=== PATIENT | male | born 2005 | race Caucasian/White ===

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

== ENCOUNTER 2025-01-30 17:25 | Emergency (ER) | payer OTHER, SELFPAY ==
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
--- OUTSIDE RECORDS SUMMARY | 2025-01-30 17:27 | XMS_ITS | Continuity of Care Document ---
Author Organization [place] [facility] [employer], [facility] [place] Address [address] [place] [address] Care Team Providers Care Curve Saw Operator Name Role Phone NAOMI DUKES Primary Care Provider NAOMI DUKES Referring Provider [phone] Assessment Encounter Date Assessment Date Assessment LastModified by Organization Details LastModified Time 01/05/2025 01/05/2025 09/22/2024: LDL 129 [email or web address] Not available 11/23/2024 15:21:10 Plan of Treatment Reminders Order Date Submit Date Provider Last Modified By Organization Details Last Modified Time Details Appointments Any 15 2025 02:00P M Naomi ely MD Not available Not available Not available Lab TSH, serum or plasma 2024 025 [email or web address] [facility] - Outpatient Lab, [address] [place], [address], 01/28/2025 11:02:18 lipid panel, serum [email or web address] - Outpatient Lab, [address] [place], [address], 01/05/2025 17:12:45 CBC w/ auto diff [email or web address] - Outpatient Lab, [address] [place], [address], 01/05/2025 17:12:45 CMP, serum or plasma [address] Outpatient Lab, [address] [place], [address], 01/05/2025 17:12:45 T4, free, serum 2024 [email or web address] [facility] Outpatient Lab, [address] [place], [address], 01/28/2025 11:02:18 vitamin D, 25-hydrox y, total, serum [address] Outpatient Lab, [address] [place], [address], 01/05/2025 17:12:45 vitamin B12 + folate, serum or blood [address] Outpatient Lab, [address] [place], [address], 01/05/2025 17:12:45 Referral cardiolog ist referral - Please call patient to schedule. 2024 JAMES Nath MD, [address], [address], 01/08/2025 11:39:32 Procedures None recorded. Surgeries None recorded. Imaging None recorded. Medication Orders None recorded. Patient TargetsNo targets recorded. Patient InstructionsNo instructions recorded. Reason for Referral Manager Drug Safety Referral for Pu lmonic valve stenosis Please call patient to schedule. Referring Physician: Naomi Dukes, Internal Medicine, Encounter Date: 01/05/2025 Problems Name Problem SNOMED Code Status Onset Date Resolution Date Notes Provider Name and Address Organization Details Recorded Time Callosity on toe 857383158 Active 2020 Not Available [facility] 3 12:38:43 Serum thyroid stimulatin g hormone level outside reference range 482445365 Active 2021 Not Available [facility] 3 12:38:43 Deviated nasal septum 548473929 Active 2021 Carmen Cage APRN [address], [place], [address] , [employer] 4 14:22:19 Anxiety 71367059 Active 2022 Carmen Cage APRN [address], [address], [place], [address] , [employer] 4 11:41:58 Acid reflux 637324175 Active 2022 Carmen Cage APRN [address], [address], [place], [address] , [employer] 4 14:22:17 Atrial septal defect 60377076 Active 2022 Valve replaced 05/14/2023 Carmen Cage APRN [address], [address], [place], [address] , [employer] 4 11:47:04 Obesity 207573047 Active 2022 Carmen Cage APRN [address], [address], [place], [address] , [employer] 4 14:22:22 Abdominal pain 93283307 Active 2023 Carmen Cage APRN [address], [address], [place], [address] , [employer] 4 11:27:20 Gastroesop hageal reflux disease 766898243 Active 2024 Naomi jacobson MD [address], [address], [place], [address] , [employer] 5 16:11:37 Chronic rhinitis 04343303 Active 2024 Naomi jacobson MD [address], [address], [place], [address] , [employer] 5 16:13:43 Vitamin D below reference range 213293701 Active 2024 Naomi jacobson MD [address], [address], [place], [address] , [facility] [employer] [facility] 5 16:14:26 Vitamin B12 level below reference range 253639375 Active 2024 Naomi jacobson MD [address], [address], [place], [address] , [facility] 5 16:14:39 Pulmonic valve stenosis 73700152 Active 2024 Naomi jacobson MD [address], [place], [address] , [facility] 5 16:30:59 Pain of left shoulder region Active 2024 Naomi jacobson MD [address], [address], [place], [address] , [facility] 5 15:33:37 Acute abdominal pain 241175931 Active 2024 Heidy Rod [facility] null, [facility] 5 16:01:59 Epigastric pain 00439845 Active 2024 Vahe martel MD [address], [address], [place], [address] , [facility] [employer] [facility] 5 16:43:12 Hyperlipid emia 99256197 Active 2024 Naomi jacobson MD [address], [address], [place], [address] , [facility] [employer] [facility] 5 15:21:14 Problem Notes None recorded. Procedures Surgical History Date Name Laterality Status Provider Name and Address Organization Details Recorded Time 05/15/19 24 procedure on heart completed Megan Roy CNA [facility] [employer] [facility] 07/28/2024 11:08:31 05/15/19 24 placement of stent in cardiac conduit completed Mica Albarran MA [place] [facility] [employer] [facility] 01/21/2024 11:11:58 03/12/19 10 tonsilectomy/nitish oids completed Not Available [facility] 05/11/2022 00:03:14 09/21/19 04 percutaneous balloon valvuloplasty of heart completed Megan Roy CNA [place] [facility] [employer] [facility] 07/28/2024 11:09:36 Imaging Results None recorded. Procedure Notes None recorded. Medical Equipment None Reported. Allergies Allergen ID Allergen Name Allergen Category Reaction Reaction Severity Criticality Documentation Date Start Date Code Code System Note Provider Name and Address Organization Details Recorded Time 65475 Robitussi n medicatio n Not available Not available Not available 05/11/2022 72807 2 RxNorm Not Available [facility] 3 00:05:54 85540 Motrin medicatio n Not available Not available Not available 05/11/202246926 8 RxNorm Not Available [facility] 3 00:05:54 Medications Name Sig Start Date Stop Date Status Note LastModified by Organization Details LastModified Time doxycycline hyclate 100 mg capsule TAKE 1 CAPSULE BY MOUTH EVERY DAY 12/04 completed Not Available Not Available Not Available metoprolol succinate ER 50 mg tablet,exte nded release 24 hr TAKE 1 TABLET BY MOUTH EVERY DAY 07/15 completed Not Available Not Available Not Available prednisone 5 mg tablet TAKE 1 TABLET BY MOUTH EVERY DAY IN THE MORNING 12/04 completed Not Available Not Available Not Available amoxicillin 500 mg tablet TAKE 4 TABLET BY MOUTH SINGLE DOSE ONE HOUR PRIOR TO DENTAL APPOINTME NT. 07/21 completed Not Available Not Available Not Available amoxicillin 875 mg tablet TAKE 1 TABLET BY MOUTH TWICE A DAY 01/09 completed Not Available Not Available Not Available famotidine 20 mg tablet TAKE 1 TABLET BY MOUTH TWICE A DAY active Not Available Not Available No t Available lorazepam 0.5 mg tablet TAKE 1 TABLET BY MOUTH THREE TIMES A DAY NEEDED 07/15 completed Not Available Not Available Not Available ondansetron 4 mg disintegrat ing tablet TAKE 1 TABLET BY MOUTH EVERY 6 TO 8 HOURS NEEDED active Not Available Not Available No t Available fluoxetine 20 mg capsule TAKE 1 CAPSULE BY MOUTH EVERY DAY 07/15 completed Not Available Not Available Not Available fluticasone propionate 50 mcg/actuati on nasal spray,suspe nsion SPRAY 1 SPRAY INTO EACH NOSTRIL EVERY DAY active Not Available Not Available No t Available naproxen 500 mg tablet 01/09 completed Not Available Not Available Not Available Zyrtec 01/09 completed Not Available Not Available Not Available olopatadine 0.6 % nasal spray ADMINISTE R 1-2 SPRAYS INTO EACH NOSTRIL TWICE A DAY 01/20 completed Not Available Not Available Not Available BinaxNOW COVID-19 Ag Self Test kit USE DIRECTED 12/04 completed Not Available Not Available Not Available aspirin 81 mg capsule Take 1 capsule every day by oral route. active Not Available Not Available No t Available Vitals Date Recorded Body height Body mass index (BMI) Body weight Body temperature Pain severity - 0-10 verbal numeric rating [Score] - Reported Heart rate Oxygen saturation Systolic And Diastolic Provider Name and Address Organization Details Last Updated DateTime 5 182.88 cm 33.9 kg/m2 658838. 09 g 97.6 [degF] 0 92 /min 98 % 122/78 mm[Hg] Mica Albarran [place] [facility] [employer] 5 14:53:30 Social History Question Answer Notes LastModified by Organizat ion Details LastModified Time Tobacco Smoking Status Never Smoker Not Available [employer] 05/11/2022 00:02:58 What Is Your Level Of Caffeine Consumption? Occasional Rarely Information not available 01/21/2024 In The 14 Days Before Symptom Onset, Have You Had Close Contact With A Laboratory-confi rmed COVID-19 While That Case Was Ill? No [id number] Information not available 05/11/2022 In The 14 Days Before Symptom Onset, Have You Had Close Contact With A Person Who Is Under Investigation For COVID-19 While That Person Was Ill? No MIGRATION.72799 [id number] Information not available 05/11/2022 What Type Of Diet Are You Following? REGULAR MIGRATION.94964 51661 Information not available 05/11/2022 What Is The Highest Grade Or Level Of School You Have Completed Or The Highest Degree You Have Received? IA88946-5 MIGRATION.15550 07072 Information not available 05/11/2022 Have There Been Any Changes To Your Family Or Social Situation? No Information not available 01/21/2024 What Is The Fluoride Status Of Your Home? Unknown MIGRATION.30505 15266 Information not available 05/11/2022 Are There Any Guns Present In Your Home? No MIGRATION.06415 67298 Information not available 05/11/2022 Do You Use Insect Repellent Routinely? No MIGRATION.05649 15250 Information not available 05/11/2022 Where Do You Live? [place]House MIGRATION.53664 82885 Information not available 05/11/2022 What Was The Date Of Your Most Recent Tobacco Screening? 01/05/2025 Information not available 01/05/2025 Do You Have Any Pets? No MIGRATION.57986 09760 Information not available 05/11/2022 What Is Your Relationship Status? Single MIGRATION.41259 [id number] Information not available 05/11/2022 Do You Use Your Seat Belt Or Car Seat Routinely? Yes Information not available 01/21/2024 Do You Have Smoke And Carbon Monoxide Detectors In Your Home? No MIGRATION.18974 33672 Information not available 05/11/2022 Are You Passively Exposed To Smoke? No MIGRATION.37759 97399 Information not available 05/11/2022 Are There Any Smokers In Your House? No MIGRATION.12763 86755 Information not available 05/11/2022 Do You Use Sunscreen Routinely? No MIGRATION.52282 74156 Information not available 05/11/2022 Has Tobacco Cessation Counseling Been Provided? No MIGRATION.39530 29468 Information not available 05/11/2022 Have You Recently Traveled Abroad? No MIGRATION.95225 73132 Information not available 05/11/2022 Do You Have Any Dietary Restrictions? No MIGRATION.80684 58440 Information not available 05/11/2022 Sex: Unknown Functional Status Question Answer Note LastModified by Organizat ion Details LastModified Time Do you use any illicit or recreational drugs? No MIGRATION.[id number] 026 Information not available 05/11/2022 Do you or have you ever used any other forms of tobacco or nicotine? No MIGRATION.7166630 026 Information not available 05/11/2022 What is your level of alcohol consumption? None MIGRATION.8660478 026 Information not available 05/11/2022 Are you currently employed? Yes Information not available 01/21/2024 What is your occupation? [employer] Information not available 01/21/2024 What is your exercise level? Occasional MIGRATION.[id number] 026 Information not available 05/11/2022 Mental Status Question Answer Note LastModified by Organizat ion Details LastModified Time Do you feel stressed (tense, restless, nervous, or anxious, or unable to sleep at night)? [id number] MIGRATION.[id number] Information not available 05/11/2022 Family History Relationship Description Onset Age of this Age Resolved Age Notes LastModified by Organization Details LastModified Time Father Diabetes mellitus [id number] [id number] Not available 05/11/2022 00:03:15 Father Family history of stroke MIGRATION.657 [id number] Not available 05/11/2022 00:03:16 Father Arthritis MIGRATION.037 [id number] Not available 05/11/2022 00:03:16 Father Hypertensive disorder MIGRATION.122 [id number] Not available 05/11/2022 00:03:16 Maternal Grandmother Arthritis MIGRATION.753 [id number] Not available 05/11/2022 00:03:16 Paternal Aunt Diabetes mellitus multip le aunts [email or web address] Not available 07/28/2024 11:07:03 Paternal Aunt Hypertensive disorder [email or web address] Not available 2024 11:07:13 Paternal Aunt Heart disease [email or web address] Not available 2024 11:07:40 Father Heart disease [email or web address] Not available 2024 11:07:40 Medical History Condition Response DEPRESSION (INCLUDING POST ) Y HEART ARRHYTHMIA Y HEART DISEASE/HEART PROBLEMS Y Immunizations Vaccine Type Date Status Note Provider Nam e and Address Organization Details Recorded Time Influenza, split virus, quadrivalent, preservative 2 completed Carmen Cage APRN [address], [address], [place], [address], [facility] [employer] [facility] 01/03/2024 14:23:00 COVID-19, mRNA, LNP-S, PF, 30 mcg/0.3 mL dose 1 completed Carmen Cage APRN [address], [address], [place], [address], [facility] 01/03/2024 14:23:01 COVID-19, mRNA, LNP-S, PF, 30 mcg/0.3 mL dose 1 completed Carmen Cage APRN [address], [address], [place], [address], [facility] 01/03/2024 14:23:01 COVID-19, mRNA, LNP-S, PF, 30 mcg/0.3 mL dose [address], [place], [address], [facility] 01/03/2024 14:23:01 influenza, unspecified formulation 3 completed [address], [place], [address], [facility] 01/03/2024 14:22:35 Influenza, MDCK, quadrivalent, PF 3 completed [address], [place], [address], [facility] 01/03/2024 14:23:01 Hib, unspecified formulation 5 completed [address], [place], [address], [facility] 01/03/2024 14:23:00 Hib, unspecified formulation 6 completed [address], [place], [address], [facility] 01/03/2024 14:23:00 Hib, unspecified formulation 5 completed [address], [place], [address], [facility] 01/03/2024 14:23:00 Hib, unspecified formulation 4 completed Carmen Niles, [employer] [address], [address], [place], [address], [facility] 01/03/2024 14:23:01 HPV9 6 completed Carmen Cage APRN [address], [address], [place], [address], [facility] 01/03/2024 14:23:01 HPV9 5 completed Carmen Cage APRN [address], [address], [place], [address], [facility] [employer] [facility] 01/03/2024 14:23:01 HPV9 6 completed Carmen Cage APRN [address], [address], [place], [address], [facility] [employer] [facility] 01/03/2024 14:23:01 MMR 9 completed Carmen Cage APRN [address], [address], [place], [address], [facility] 01/03/2024 14:23:01 MMR 5 completed Carmen Cage APRN [address], [address], [place], [address], [facility] [employer] [facility] 01/03/2024 14:23:01 COVID-19, mRNA, LNP-S, bivalent, PF, 30 mcg/0.3 mL dose 2 completed Carmen Cage APRN [address], [address], [place], [address], [facility] [employer] [facility] 01/03/2024 14:23:01 pneumococcal conjugate PCV 7 5 brittani Cage APRN [address], [address], [place], [address], [facility] [employer] [facility] 01/03/2024 14:23:01 pneumococcal conjugate PCV 7 5 brittani Cage APRN [address], [address], [place], [address], [facility] [employer] [facility] 01/03/2024 14:23:01 pneumococcal conjugate PCV 7 4 completed Carmen Cage APRN [address], [address], [place], [address], [facility] [employer] [facility] 01/03/2024 14:23:01 DTaP-IPV 9 completed Carmen Cage APRN [address], [address], [place], [address], [facility] [employer] [facility] 01/03/2024 14:23:01 COVID-19, mRNA, LNP-S, PF, jhonatan-sucrose, 30 mcg/0.3 mL 3 completed Carmen Cage APRN [address], [address], [place], [address], [facility] [employer] [facility] 01/03/2024 14:23:01 influenza, unspecified formulation 8 completed Carmen Cage APRN [address], [address], [place], [address], [facility] [employer] [facility] 01/03/2024 14:23:01 Tdap 5 completed Carmen Cage APRN [address], [address], [place], [address], [facility] [employer] [facility] 01/03/2024 14:23:01 varicella 9 completed Carmen Cage APRN [address], [address], [place], [address], [facility] [employer] [facility] 01/03/2024 14:23:01 varicella 5 completed Carmen Cage APRN [address], [address], [place], [address], [facility] [employer] [facility] 01/03/2024 14:23:01 Influenza, split virus, trivalent, preservative 1 brittani Cage APRN [address], [address], [place], [address], [facility] [employer] [facility] 01/03/2024 14:23:01 Influenza, split virus, trivalent, PF 3 completed Carmen Cage APRN [address], [address], [place], [address], [employer] [facility] 01/03/2024 14:23:01 Influenza, split virus, trivalent, PF 2 completed Carmen Cage APRN [address], [address], [place], [address], [employer] [facility] 01/03/2024 14:23:01 influenza, split (incl. purified surface antigen) 9 completed Carmen Cage APRN [address], [address], [place], [address], [employer] [facility] 01/03/2024 14:23:01 influenza, split (incl. purified surface antigen) 0 completed Carmen Cage APRN [address], [address], [place], [address], [employer] [facility] 01/03/2024 14:23:01 influenza, split (incl. purified surface antigen) 8 completed Carmen Cage APRN [address], [address], [place], [address], [employer] [facility] 01/03/2024 14:23:01 HPV, quadrivalent 5 completed Carmen Cage APRN [address], [address], [place], [address], [employer] [facility] 01/03/2024 14:23:01 Hep B, adolescent or pediatric 4 completed Carmen Cage APRN [address], [address], [place], [address], [employer] [facility] 01/03/2024 14:23:01 Hep B, adolescent or pediatric 4 completed Carmen Cage APRN [address], [address], [place], [address], [employer] [facility] 01/03/2024 14:23:01 Hep A, pediatric, unspecified formulation 7 completed Carmen Cage APRN [address], [place], [address], [employer] [facility] [employer] [facility] 01/03/2024 14:23:01 Hep A, pediatric, unspecified formulation 6 completed Carmen Cage APRN [address], [place], [address], [employer] [facility] [employer] [facility] 01/03/2024 14:23:01 Meningococcal MCV4O 0 completed Carmen Cage APRN [address], [place], [address], [employer] [facility] [employer] [facility] 01/03/2024 14:23:01 meningococcal MCV4P 5 completed Carmen Cage APRN [address], [address], [place], [address], [employer] [facility] [employer] [facility] 01/03/2024 14:23:01 DTaP 6 brittani Cage APRN [address], [place], [address], [employer] [facility] [employer] [facility] 01/03/2024 14:23:01 DTaP-Hep B-IPV 5 brittani Cage APRN [address], [place], [address], [employer] [facility] [employer] [facility] 01/03/2024 14:23:01 DTaP-Hep B-IPV 5 completed Carmen Cage APRN [address], [place], [address], [employer] [facility] [employer] [facility] 01/03/2024 14:23:01 DTaP-Hep B-IPV 4 completed Carmen Cage APRN [address], [place], [address], [facility] [employer] [facility] [employer] [facility] 01/03/2024 14:23:01 Influenza, split virus, quadrivalent, PF 1 completed Carmen Cage APRN [address], [address], [place], [address], [employer] [facility] [employer] [facility] 01/03/2024 14:23:01 Influenza, split virus, quadrivalent, PF 7 completed Carmen Cage APRN [address], [place], [address], [employer] [facility] [employer] [facility] 01/03/2024 14:23:01 Influenza, split virus, quadrivalent, PF 6 completed Carmen Cage APRN [address], [place], [address], [employer] [facility] [employer] [facility] 01/03/2024 14:23:01 Influenza, split virus, quadrivalent, PF 8 completed Carmen Cage APRN [address], [place], [address], [employer] [facility] [employer] [facility] 01/03/2024 14:23:01 Influenza, split virus, quadrivalent, PF 9 completed Carmen Cage APRN [address], [place], [address], [employer] [facility] [employer] [facility] 01/03/2024 14:23:01 Influenza, split virus, quadrivalent, PF 2 completed Carmen Cage APRN [address] [address], [place], [address], [employer] [facility] [employer] [facility] 01/03/2024 14:23:01 Influenza, split virus, quadrivalent, PF 4 completed Carmen Cage APRN [address], [address], [place], [address], [employer] [facility] [employer] [facility] 01/03/2024 14:23:01 Influenza, split virus, quadrivalent, PF 5 completed Carmen Cage APRN [address], [address], [place], [address], [employer] [facility] [employer] [facility] 01/03/2024 14:23:01 COVID-19, mRNA, LNP-S, PF, jhonatan-sucrose, 30 mcg/0.3 mL 4 completed Carmen Cage, [employer] [address], [address], [place], [address], [facility] [employer] 01/21/2024 11:15:51 Influenza, MDCK, trivalent, PF 4 completed Carmen Cage, [employer] [address], [address], [place], [address], [facility] [employer] [facility] [employer] 01/21/2024 11:15:52 Influenza, MDCK, trivalent, PF 5 completed Not Available [facility] 01/05/2025 14:36:23 COVID-19, mRNA, LNP-S, PF, jhonatan-sucrose, 30 mcg/0.3 mL 5 completed Not Available [facility] 01/05/2025 14:36:23 Past Encounters Encounter ID Performer Location Encounter Start Date Encounter Closed Date Diagnosis/Indication Diagnosis SNOMED-CT Code Diagnosis ICD10 Code Diagnosis IMO Codes Diagnosis Note [id number] Naomi jacobson MD [facility] [address] [place] [address] 01/05/2025 14:34:14 01/05/2025 15:33:19 Screening due 857842075 Z13.9 [id number] Get yearly flu shotGet Tdap if not doneCan do COVID 19 boosters RTC in 3 months, do labs, ER if worse, he did verbalize his understand ing of the above Gastroesop hageal reflux disease 734173831 K21.9 68573128 On famotidine Does well nowDecline d any referral to GI 01/05/2025 Chronic rhinitis 5706249 6 J31.0 2545 On flonaseDoe s well Vitamin D below reference range 077321300 R79.89 31717309 Vitamin B1 2 level below reference range 653271262 R79.89 77096706 Pulmonic v alve stenosis 64732663 I37.0 [id number] On ASA 81mg dailyS/p [place] valve r Kwan Garcia pediatric cardiology Has been referred to adult cardiology 01/05/2025 Pain of le ft shoulder region 8874168902 M25.512 [id number] Mary Grace Elder [employer] 07/28/2024 This is now resollved Epigastric pain 93358365 R10.[id number] Bynum 10/23/2024 , N eeds to see GI for EGD but states today 01/05/2025 that his symptoms are now resolved and he does not want to see GI Hyperlipidemia 54828643 E78.5 [id number] Declined any meds, has lost weight and will repeat the labs Health Concerns Section Related Observation LastModified by Organization Detai ls LastModified Time None Recorded Concern Status LastModified by Organization Details LastModified Time None Recorded Payers Encounter Date Sequence Insurance Name Policy Number Policy Richardson Covered Member ID Richardson Member ID Guarantor Name 01/05/2025 1 [facility] (MEDICAID HMO) [id number] Max Montoya [id number] Max Montoya Notes Date Note Type Note Provider Name and Address Organization Details Recorded Time 01/05/2025 text/html OV 07/21/2024:Here to establish care Present Hx:GERDRhinitis Here to discuss above and to get labsL shoulder pain since a year, no N/T or weakness in the L UE, he is RHDHe heard it 'pop' about a year ago OV 01/05/2025: Here for his f/u apt, he is doing well today Naomi Dukes MD [address] [place] [address], [facility] [address], [place], [address], [place] [facility] 01/05/2025 15:33:53
--- OUTSIDE RECORDS SUMMARY | 2025-01-30 17:27 | XMS_ITS | Clinical Summary ---
Author Organization [facility] Address [address] [place] [address] Care Team Providers Care Prestressed Concrete Laborer Name Role Phone ShyanneLoretta doll HELEN-VALERIE Primary Care Provider [phone] Source Comments [facility],non-owned Affiliates and Associated Physician Practices is amultiple site organization consisting of ambulatory clinics and hospital sitesin [place], [place], [place] and [place]. This disclosure is being madepursuant to the Care Everywhere program and may not contain all information available regarding this patient. Last updated 17.[facility] [employer] Allergies Active Allergy Reactions Criticality Noted Date Comments Lemon Flavor 11/17/2009 Lemon nisqually flavor gets hives so family avoids both [place] [employer] 11/17/2009 Ibuprofen Micronized Rash Medium 2009 Robitussin Ped Cough-Cold Rash High 09/01/2009 Medications * Be aware that medications may not be up to date on this document. Alwaysverify current medications with the patient. 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 More recently he is now s/p transcatheter pulmonary valve placement with a 25 mm Rome valve after which he had short runs of VT which have resolved following metoprolol treatment. His echocardiogram today is reassuring with the device appropriately placed, without significant stenosis or insufficiency across it. He had a Holter last year and was taken off of metoprolol. He is clinically doing well at this time, so will plan to have him follow up with adult congenital cardiology in 1 year with repeat echo at that visit. He will be set up with a transition visit in about 6 months. Of course should any concerns arise, I would plan to re-evaluate him sooner. In the meantime, Heidi has no restrictions from a cardiovascular standpoint regarding routine care or activity. He does require SBE prophylaxis per the AHA recommendations. Assessment & Plan (03/16/2023 1:45 PM SCOUT SNIPER): Heidi Montoya is a 17 year old male with a history of critical pulmonary stenosis s/p ECMO and balloon angioplasty as well as device closure of a fenestrated atrial septal defect. He continues to be symptomatic with chest pain, shortness of breath, and decreased energy despite having lost a lot of weight. He has moderate pulmonary insufficiency and a moderately dilated RV on echocardiogram today. With his persistent symptoms it is time for pulmonary valve replacement. I am hopeful that he will be a Rome candidate. I have ordered the cardiac CT for planning/evaluation of Rome valve. We also discussed placement of Perla and Jumana valves if he were not a candidate. In the meantime, Heidi has no restrictions from a cardiovascular standpoint regarding routine care or activity. He does not require SBE prophylaxis per the AHA recommendations. Discussed these plans with Heidi who voiced understanding and agreement with these plans prior to leaving the visit. Assessment & Plan (04/07/2022 4:25 PM SCOUT SNIPER): Heidi Montoya is a 16 year old male with a history of critical pulmonary stenosis s/p ECMO and balloon angioplasty as well as device closure of a fenestrated atrial septal defect. He presents for follow up after an episode of chest pain and shortness of breath while throwing a punch during exercising. I think this is likely due to a combination of deconditioning and musculoskeletal chest pain. I have encouraged him to continue to exercise for the next 4-6 weeks and if the symptoms persist we will consider valve replacement, likely with a Rome valve. If he does tolerate working out, then he can simply follow up in clinic in 1 year with repeat echocardiogram and ECG at that time. If he does not tolerate the increased activity, then will proceed with cardiac CT for planning/evaluation of Rome valve. In the meantime, Heidi has no restrictions from a cardiovascular standpoint regarding routine care or activity. He does not require SBE prophylaxis per the AHA recommendations. Discussed these plans with Heidi who voiced understanding and agreement with these plans prior to leaving the visit. Assessment & Plan (06/16/2021 9:53 AM CDT): Heidi is a 15 year old child with a history of critical pulmonary stenosis who was initially on ECMO prior to valvuloplasty. He has been followed with moderate pulmonary insufficiency and at least moderate RV dilation. He also has a history of a fenestrated ASD which was closed in the greens laborer. His RV has dilated secondary to his pulmonary insufficiency but it continues to have normal function. He underwent an MRI in February 2021 which showed moderate pulmonary insufficiency and dilation of the RV but did not meet indications for pulmonary valve replacement. We again reviewed the indications for pulmonary valve replacement, most importantly if he were to become symptomatic with decreased energy, further ventriclar dilation or dysfunction. RECOMMENDATIONS 1. Follow up evaluation with an echocardiogram in 12 months. Will likely repeat an MRI after this visit. 2. Sooner follow up as needed. 3. No SBE prophylaxis recommended. 4. No activity restrictions recommended from a cardiac standpoint. 5. Patient and mother instructed to call if Tylaor develops any sustained tachypnea, respiratory difficulty, cyanosis, or other concerns. Granuloma of skin 11/26/2009 Overview (11/26/2009): Left cheek that was scratched and became infected. ASD (atrial septal defect) 08/30/2009 Family history of migraine headaches Overview (10/18/2009): Headaches times 3-4 months Family History Medical History Relation Name Comments CVA<55(male) Father Stroke Father Cardiomyopathy Maternal Aunt chf Kidney Disease Paternal Aunt Migraine Paternal Aunt Migraine Paternal Grandmother Asthma Neg Hx Relation Name Status Comments Father Alive Maternal Aunt chf Alive Other cousin Alive Paternal Aunt Paternal Grandmother half-brother 1 Alive half-brother 2 Alive half-sister 1 Alive half-sister 2 Alive half-sister 3 Alive half-sister 4 Alive Social History Tobacco Use Types Packs/Day Years Used Date Smoking Tobacco: Never Smokeless Tobacco: Never Tobacco Cessation:Counseling Given: Not Answered Alcohol Use Standard Drinks/Week Comments No 0 (1 standard drink = 0.6 oz pur e alcohol) AUDIT-C Answer Date Recorded Q1: How often do you have a drink containing alcohol? Never 05/15/2023 Q2: How many drinks containi ng alcohol do you have on a typical day when you are drinking? Patient does not drink Q3: How often do you have si x or more drinks on one occasion? Never 05/15/2023 Sex and Gender Information Value Date Recorded Sex Assigned at Male 03/15/2022 6:58 PM SCOUT SNIPER Legal Sex Male 5:43 AM SCOUT SNIPER Gender Identity Male 03/15/2022 6:58 PM SCOUT SNIPER Sexual Orientation Straight 03/15/2022 6: 58 PM SCOUT SNIPER Last Filed Vital Signs Vital Sign Reading Time Taken Comments Blood Pressure 128/80 07/04/2024 10:00 AM CDT Pulse 93 07/04/2024 10:00 AM CDT Temperature 36.3 C (97.4 F) 05/16/2023 3:51 AM SCOUT SNIPER Respiratory Rate 20 07/04/2024 10:0 0 AM CDT Oxygen Saturation 97% 07/04/2024 10: 00 AM CDT Inhaled Oxygen Concentration - - Weight 117.2 kg (258 lb 6.1 oz) 025 10:00 AM CDT Height 183 cm (6' 0.05) 07/04/2024 10: 00 AM CDT Body Mass Index 35 07/04/2024 10:00 AM CDT Plan of Treatment Upcoming Encounters Date Type Department Care Team (Late st Contact Info) Description 06/30/2025 10:30 AM CDT Appointment [facility] at [address] [address] Glenn Card MD [address] [place] [phone] Health Maintenance Due Date Last Done Comments HIV SCREENING 09/20/2018 HPV VACCINE (1 - Male 3-dose series) 09/20/2018 MENINGOCOCCAL (Group B) VACCINE SHARED DECISION-MAKING (1 of 2 - Standard) 2019 HEPATITIS C SCREENING 09/16/2021 DTAP/TDAP/TD VACCINES (1 - Tdap) 09/20/2022 HEPATITIS B VACCINE (1 of 3 - 19+ 3-dose series) 09/20/2022 DEPRESSION SCREENING 03/12/2024 COVID-19 VACCINE ( - season) 2024 01/10/2022, 03/07/2021, 08/20/2020, Additional history exists INFLUENZA VACCINE (#1) 2024 , 11/12/2022, 12/26/2021, Additional history exists ZOSTER VACCINE (1 of 2) 09/20/2053 HIB VACCINE Aged Out No longer eligi ble based on patient's age to complete this topic MENINGOCOCCAL GROUPS A/C/Y/W VACCINE Aged Out No longer eligible based on patient's age to complete this topic PNEUMOCOCCAL VACCINE Aged Out No long er eligible based on patient's age to complete this topic Medical Devices Implanted Type Area Flare Worker Device Identifier Shelf Expiration Date Model / Serial / Lot Vlv Pulm 25mm Hrmn Implanted:Qty : 1 on 05/15/2023 by Kwan Nino MD at [facility] N/A: Heart [employer] Minimally Invasive Therap [id number] 11/30/2023 HARMONY-25 / [id number] / [id number] Description:pulmonary valve [facility] Advance Directives * Full Code (Latest Code Status on File) Date Activated Date Inactivated Comments 05/15/2023 5:22 PM 05/16/2023 10:31 AM Care Teams Prestressed Concrete Laborer Relationship Specialty Start Date End Date Loretta Ventura APRN-VALERIE [address] [phone] PCP - General Nurse Practitioner Family 03/15/22
--- OUTSIDE RECORDS SUMMARY | 2025-01-30 17:27 | XMS_ITS | Continuity of Care Document ---
Author Organization [place] - [facility], [facility] General Surgery Address [address] [place] [address] Care Team Providers Care Compounding And Finishing Supervisor Name Role Phone NAOMI DUKES Primary Care Provider NAOMI DUKES Referring Provider Assessment Encounter Date Assessment Date Assessment LastModified by Organization Details LastModified Time 11/04/2024 11/04/2024 HIDA scan WNL with EF of 65%. No concerns for acute cholecystitis or biliary dyskinesia at this time. Recommend considering GI referral with EGD if symptoms persist. Patient agreeable. [email or web address] Not available 11/04/2024 11:48:07 Plan of Treatment Reminders Order Date Submit Date Provider Last Modified By Organization Details Last Modified Time Details Appointments Any 15 026 02:00PM Naomi ely MD Not available Not available Not available Lab None record ed. Referral None record ed. Procedures None record ed. Surgeries None record ed. Imaging None record ed. Medication Orders None record ed. Patient TargetsNo targets recorded. Patient InstructionsNo instructions recorded. Reason for Referral None Reported. Results Created Date Observation Date Name Description Value Unit Range Abnormal Flag Note LastModifiedBy Organization Detail LastModifiedTime 10/17/1910/16/2024 US, abdom en, compl ete [facility] [address] [phone] RADIOL OGY REPORT _ Patien t Name: KATARINA GORDON Date Of : [birth year] Date Of Study: 10/17/19 Ref. Physic bhavna: MERCED Jacobson MD _ Examin ation: US ABDOME N [facility] AL INDICA TION: Not Provid ed COMPAR SURYA: None. TECHNI QUE: Using real-t tanvir ultras onic imagin g and color Dopple r the abdome n was examin ed from the xiphoi d to below the umbili cus. FINDIN GS: Liver is normal in size and measur es 15.5 cm. It demons trates smooth border and normal echoge nicity , with no eviden ce of intrah epatic ductal dilata tion. Hepati c veins are patent . Main portal vein shows normal hepato petal flow. Gallbl adder shows normal morpho logy with no stones . The gallbl adder wall is not thicke west and measur es 4.4 mm. No sonogr aphic Rangel `s sign was elicit ed. The common bile duct measur es 1.9 mm norma manager zone iorly, which is normal . Pancre as appear s to be normal in size and echote xture. Both kidney s demons trate normal morpho logy and cortic al echoge nicity , with no eviden ce of stones , masses or hydron ephros is. Right kidney measur es 10.6 x 5.5 x 5 cm. Left kidney measur es 10.6 x 4.9 x 4.7 cm. Spleen measur es 11.4 x 3.9 x 5.3 cm and demons trates normal morpho logy. Abdomi nal aorta not visual ized. No free fluid is seen. IVC is visual ized and appear s normal . IMPRES MARLEN: No signif icant abnorm ality is noted in this study. Electr onical ly Signed 10/17/19 15:55 Pithierry Man [facility] (Imaging) [address] [place], [address], 10/16/2024 16:56:45 10/17/19 25 10/16/2024 imagi ng/di agnos tic resul t No observ ation record ed. [facility] Radiology [address] [place], [address], 10/16/2024 17:50:05 11/01/19 25 10/31/2024 NM, hepat obili melissa scan, w/pha rm [facility] [address] [place] [address] [phone] RADIOL OGY REPORT _ Patien t Name: KATARINA GORDON Date Of : [birth year] Date Of Study: 025 Ref. Physic bhavna: PALAK Castellon MD _ EXAMIN ATION: NM HEPATO BILIAR Y W [facility] OLOGIC INTERV ENTION CCK CLINIC AL INDICA TION: GBEF COMPAR SURYA: NONE TECHNI QUE: Follow ing intrav enous admini strati on of 8 mCi of techne tium 99m Cho[place] ec, hepato biliar y imagin g was perfor med. Sequen tial images are obtain ed in the anteri or projec tion for 60 minute s. 2.3 mcg mcg of cholec franc hawley was admini stered , and furthe r images are obtain ed. FINDIN GS: There is normal and homoge neous uptake throug hout the liver on the initia l images . There is prompt excret ion of radioa ctivit y from the liver into the gallbl adder and small bowel. There is normal disten marlen of radioa ctivit y of the gallbl adder. There is progre ssive cleara nce of radioa ctivit y from the liver into the gallbl adder and small bowel. There is good contra ction of the gallbl adder post CCK. The gallbl adder ejecti on fracti on is 65%. IMPRES MARLEN: Normal study. No eviden ce for biliar y dyskin esia. Electr onical ly Signed 025 16:[address] (Imaging) [address] [place], [address], 11/03/2024 11:50:53 11/01/19 25 10/31/2024 NM, hepat obili melissa scan, w/ CCK No observ ation record ed. [address] [place], [address], 11/03/2024 11:48:34 11/01/19 25 10/31/2024 imagi ng/di agnos tic resul t No observ ation record ed. [facility] [address] [place], [address], 10/31/2024 17:36:27 Result Notes None recorded. Problems Name Problem SNOMED Code Status Onset Date Resolution Date Notes Provider Name and Address Organization Details Recorded Time Callosity on toe 795641453 Active 2020 Not Available [facility] 3 12:38:43 Serum thyroid stimulatin g hormone level outside reference range 776156524 Active 2021 Not Available [facility] 3 12:38:43 Deviated nasal septum 818791064 Active 2021 Carmen Cage APRN [address], [place], [address] , [employer] [place] [facility] 4 14:22:19 Anxiety 78692383 Active 2022 Carmen Cage APRN [address], [address], [place], [address] , [employer] [place] [facility] 4 11:41:58 Acid reflux 953570472 Active 2022 Carmen Cage APRN [address], [address], [place], [address] , [employer] [place] [facility] 4 14:22:17 Atrial septal defect 36792934 Active 2022 Valve replaced 05/14/2023 Carmen Cage APRN [address], [address], [place], [address] , [employer] [place] [facility] 4 11:47:04 Obesity 693627658 Active 2022 Carmne Cage APRN [address], [address], [place], [address] , [employer] [place] [facility] 4 14:22:22 Abdominal pain 89839883 Active 2023 Carmen Cage APRN [address], [place], [address] , [employer] [place] [facility] 4 11:27:20 Gastroesop hageal reflux disease 742959315 Active 2024 Naomi jacobson MD [address], [place], [address] , [employer] [place] [facility] [place] [facility] 5 16:11:37 Chronic rhinitis 37930033 Active 2024 Naomi jacobson MD [address], [place], [address] , [employer] [place] [facility] 5 16:13:43 Vitamin D below reference range 772211405 Active 2024 Naomi jacobson MD [address], [place], [address] , [facility] 5 16:14:26 Vitamin B12 level below reference range 254764274 Active 2024 Naomi jacobson MD [address], [place], [address] , [facility] 5 16:14:39 Pulmonic valve stenosis 84172101 Active 2024 Naomi jacobson MD [address], [place], [address] , [facility] 5 16:30:59 Pain of left shoulder region Active 2024 Naomi jacobson MD [address], [place], [address] , [facility] 5 15:33:37 Acute abdominal pain 849044989 Active 2024 ANTONIETA Banegas, [facility] 5 16:01:59 Epigastric pain 99544665 Active 2024 Vahe martel MD [address], [place], [address] , [facility] 5 16:43:12 Hyperlipid emia 61518144 Active 2024 Naomi jacobson MD [address], [place], [address] , [facility] 5 15:21:14 Problem Notes None recorded. Procedures Surgical History Date Name Laterality Status Provider Name and Address Organization Details Recorded Time 05/15/19 24 procedure on heart completed Megan Roy CNA [facility] 07/28/2024 11:08:31 05/15/19 24 placement of stent in cardiac conduit completed Mica Albarran MA [facility] [employer] 01/21/2024 11:11:58 03/12/19 10 tonsilectomy/nitish oids completed Not Available [facility] 05/11/2022 00:03:14 09/21/19 04 percutaneous balloon valvuloplasty of heart completed Megan Roy CNA [facility] ENT Surgical [facility] 07/28/2024 11:09:36 Imaging Results None recorded. Procedure Notes None recorded. Medical Equipment None Reported. Allergies Allergen ID Allergen Name Allergen Category Reaction Reaction Severity Criticality Documentation Date Start Date Code Code System Note Provider Name and Address Organization Details Recorded Time 38277 Robitussi n medicatio n Not available Not available Not available 05/11/2022 06563 2 RxNorm Not Available [facility] 3 00:05:54 05162 Motrin medicatio n Not available Not available Not available 05/11/202286842 8 RxNorm Not Available [facility] 3 00:05:54 Medications Name Sig Start Date [...] mass index (BMI) Body weight Body temperature Heart rate Respiratory rate Oxygen saturation Systolic And Diastolic Provider Name and Address Organization Details Last Updated DateTime 5 182.88 cm 35.3 kg/m2 224299. 02 g 98 [degF] 80 /min 16 /min 98 % 120/80 mm[Hg] Tatyana Isbell [place] [employer] 5 11:05:41 Social History Question Answer Notes LastModified by Organizat ion Details LastModified Time Tobacco Smoking Status Never Smoker Not Available [facility] 05/11/2022 00:02:58 What Is Your Level Of Caffeine Consumption? Occasional Rarely Information not available 01/21/2024 In The 14 Days Before Symptom Onset, Have You Had Close Contact With A Laboratory-confi rmed COVID-19 While That Case Was Ill? No [id number].[id number] Information not available 05/11/2022 In The 14 Days Before Symptom Onset, Have You Had Close Contact With A Person Who Is Under Investigation For COVID-19 While That Person Was Ill? No MIGRATION.36962 11564 Information not available 05/11/2022 What Type Of Diet Are You Following? REGULAR MIGRATION. 67986 Information not available 05/11/2022 What Is The Highest Grade Or Level Of School You Have Completed Or The Highest Degree You Have Received? [id number] MIGRATION. 06441 Information not available 05/11/2022 Have There Been Any Changes To Your Family Or Social Situation? No Information not available 01/21/2024 What Is The Fluoride Status Of Your Home? Unknown MIGRATION.00149 77915 Information not available 05/11/2022 Are There Any Guns Present In Your Home? No MIGRATION.68034 05528 Information not available 05/11/2022 Do You Use Insect Repellent Routinely? No MIGRATION.48650 30869 Information not available 05/11/2022 Where Do You Live? [place]House MIGRATION.49146 59032 Information not available 05/11/2022 What Was The Date Of Your Most Recent Tobacco Screening? 01/05/2025 Information not available 01/05/2025 Do You Have Any Pets? No MIGRATION.45950 42041 Information not available 05/11/2022 What Is Your Relationship Status? Single MIGRATION.07662 35629 Information not available 05/11/2022 Do You Use Your Seat Belt Or Car Seat Routinely? Yes Information not available 01/21/2024 Do You Have Smoke And Carbon Monoxide Detectors In Your Home? No MIGRATION.66470 50882 Information not available 05/11/2022 Are You Passively Exposed To Smoke? No MIGRATION.14213 23398 Information not available 05/11/2022 Are There Any Smokers In Your House? No MIGRATION.28941 87827 Information not available 05/11/2022 Do You Use Sunscreen Routinely? No MIGRATION.18152 49579 Information not available 05/11/2022 Has Tobacco Cessation Counseling Been Provided? No MIGRATION.68287 25225 Information not available 05/11/2022 Have You Recently Traveled Abroad? No MIGRATION.66270 61947 Information not available 05/11/2022 Do You Have Any Dietary Restrictions? No MIGRATION.49305 88596 Information not available 05/11/2022 Sex: Unknown Functional Status Question Answer Note LastModified by Organizat ion Details LastModified Time Do you use any illicit or recreational drugs? No MIGRATION.[id number] 026 Information not available 05/11/2022 Do you or have you ever used any other forms of tobacco or nicotine? No MIGRATION.5418191 026 Information not available 05/11/2022 What is your level of alcohol consumption? None MIGRATION.4354459 026 Information not available 05/11/2022 Are you currently employed? Yes Information not available 01/21/2024 What is your occupation? [employer] Information not available 01/21/2024 What is your exercise level? Occasional MIGRATION.6195484 026 Information not available 05/11/2022 Mental Status Question Answer Note LastModified by Organizat ion Details LastModified Time Do you feel stressed (tense, restless, nervous, or anxious, or unable to sleep at night)? [id number] MIGRATION.[id number] 6 Information not available 05/11/2022 Family History Relationship Description Onset Age of this Age Resolved Age Notes LastModified by Organization Details LastModified Time Father Diabetes mellitus [id number] [id number] Not available 05/11/2022 00:03:15 Father Family history of stroke MIGRATION.489 [id number] Not available 05/11/2022 00:03:16 Father Arthritis MIGRATION.409 [id number] Not available 05/11/2022 00:03:16 Father Hypertensive disorder MIGRATION.082 [id number] Not available 05/11/2022 00:03:16 Maternal Grandmother Arthritis MIGRATION.602 [id number] Not available 05/11/2022 00:03:16 Paternal Aunt Diabetes mellitus multip le aunts [email or web address] Not available 07/28/2024 11:07:03 Paternal Aunt Hypertensive disorder [email or web address] Not available 2024 11:07:13 Paternal Aunt Heart disease [email or web address] Not available 2024 11:07:40 Father Heart disease [email or web address] Not available 2024 11:07:40 Medical History Condition Response HEART ARRHYTHMIA Y DEPRESSION (INCLUDING POST ) Y HEART DISEASE/HEART PROBLEMS Y Immunizations Vaccine Type Date Status Note Provider Nam e and Address Organization Details Recorded Time Influenza, split virus, quadrivalent, preservative 2 completed Carmen Cage APRN [address], [address], [place], [address], [facility] [place] [employer] 01/03/2024 14:23:00 COVID-19, mRNA, LNP-S, PF, 30 mcg/0.3 mL dose 1 completed Carmen Cage APRN [address], [address], [place], [address], [facility] 01/03/2024 14:23:01 COVID-19, mRNA, LNP-S, PF, 30 mcg/0.3 mL dose 1 completed Carmen Cage APRN [address], [address], [place], [address], [facility] 01/03/2024 14:23:01 COVID-19, mRNA, LNP-S, PF, 30 mcg/0.3 mL dose 1 completed [address], [place], [address], [facility] 01/03/2024 14:23:01 influenza, unspecified formulation 3 completed HELEN Bettencourt [address], [place], [address], [facility] 01/03/2024 14:22:35 Influenza, MDCK, quadrivalent, PF 3 completed HEL[address] Bet[address], [place], [address], [facility] 01/03/2024 14:23:01 Hib, unspecified formulation 5 completed HELEN Bet[address], [place], [address], [facility] 01/03/2024 14:23:00 Hib, unspecified formulation 6 completed HELEN Bet[address], [place], [address], [facility] 01/03/2024 14:23:00 Hib, unspecified formulation 5 completed HELEN Bet[address], [place], [address], [facility] 01/03/2024 14:23:00 Hib, unspecified formulation 4 completed Carmen Cage APRN [address], [address], [place], [address], [facility] 01/03/2024 14:23:01 HPV9 6 completed Carmen Cage APRN [address], [address], [place], [address], [facility] 01/03/2024 14:23:01 HPV9 5 completed Carmen Cage APRN [address], [address], [place], [address], [facility] 01/03/2024 14:23:01 HPV9 6 completed Carmen Cage APRN [address], [address], [place], [address], [facility] 01/03/2024 14:23:01 MMR 9 completed HELEN Bet[address], [place], [address], [facility] 01/03/2024 14:23:01 MMR 5 completed HELEN Betten[address], [place], [address], [facility] 01/03/2024 14:23:01 COVID-19, mRNA, LNP-S, bivalent, PF, 30 mcg/0.3 mL dose 2 completed Carmen Cage APRN [address], [place], [address], [facility] 01/03/2024 14:23:01 pneumococcal conjugate PCV 7 5 completed HELEN Bet[address], [place], [address], [facility] 01/03/2024 14:23:01 pneumococcal conjugate PCV 7 [address], [place], [address], [facility] 01/03/2024 14:23:01 pneumococcal conjugate PCV 7 4 completed Carmen Cage APRN [address], [address], [place], [address], [facility] [employer] [facility] 01/03/2024 14:23:01 DTaP-IPV 9 completed Carmen Cage APRN [address], [place], [address], [facility] [employer] [facility] 01/03/2024 14:23:01 COVID-19, mRNA, LNP-S, PF, jhonatan-sucrose, 30 mcg/0.3 mL 3 completed Carmen Cage APRN [address], [place], [address], [facility] [employer] [facility] 01/03/2024 14:23:01 influenza, unspecified formulation 8 completed Carmen Cage APRN [address], [address], [place], [address], [facility] 01/03/2024 14:23:01 Tdap 5 completed Carmen Cage APRN [address], [place], [address], [facility] [employer] [facility] 01/03/2024 14:23:01 varicella 9 completed Carmen Cage APRN [address], [address], [place], [address], [facility] 01/03/2024 14:23:01 varicella 5 completed Carmen Cage APRN [address], [address], [place], [address], [facility] [employer] [facility] 01/03/2024 14:23:01 Influenza, split virus, trivalent, preservative 1 completed Carmen Cage APRN [address], [address], [place], [address], [facility] [employer] [facility] 01/03/2024 14:23:01 Influenza, split virus, trivalent, PF 3 completed Carmen Cage APRN [address], [address], [place], [address], [employer] [facility] 01/03/2024 14:23:01 Influenza, split virus, trivalent, PF 2 completed Carmen Cage APRN [address], [address], [place], [address], [employer] 01/03/2024 14:23:01 influenza, split (incl. purified surface antigen) 9 completed Carmen Cage APRN [address], [address], [place], [address], [facility] 01/03/2024 14:23:01 influenza, split (incl. purified surface antigen) 0 completed Carmen Cage APRN [address], [address], [place], [address], [employer] 01/03/2024 14:23:01 influenza, split (incl. purified surface antigen) 8 completed Carmen Cage APRN [address], [address], [place], [address], [employer] 01/03/2024 14:23:01 HPV, quadrivalent 5 completed Carmen Cage APRN [address], [address], [place], [address], [facility] 01/03/2024 14:23:01 Hep B, adolescent or pediatric 4 completed HELEN Betten[address], [place], [address], [employer] 01/03/2024 14:23:01 Hep B, adolescent or pediatric 4 completed Carmen Cage APRN [address], [address], [place], [address], [employer] 01/03/2024 14:23:01 Hep A, pediatric, unspecified formulation 7 completed Carmen Cage APRN [address], [address], [place], [address], [facility] [employer] [facility] 01/03/2024 14:23:01 Hep A, pediatric, unspecified formulation 6 completed Carmen Cage APRN [address], [address], [place], [address], [facility] 01/03/2024 14:23:01 Meningococcal MCV4O 0 completed Carmen Cage APRN [address], [address], [place], [address], [employer] [facility] 01/03/2024 14:23:01 meningococcal MCV4P 5 completed Carmen Cage APRN [address], [address], [place], [address], [employer] [facility] 01/03/2024 14:23:01 DTaP 6 brittani Cage APRN [address], [address], [place], [address], [employer] [facility] 01/03/2024 14:23:01 DTaP-Hep B-IPV 5 brittani Cage APRN [address], [address], [place], [address], [employer] [facility] 01/03/2024 14:23:01 DTaP-Hep B-IPV 5 brittani Cage APRN [address], [address], [place], [address], [facility] [employer] [facility] 01/03/2024 14:23:01 DTaP-Hep B-IPV 4 brittani Cage APRN [address], [address], [place], [address], [facility] [employer] [facility] 01/03/2024 14:23:01 Influenza, split virus, quadrivalent, PF 1 completed Carmen Cage APRN [address], [address], [place], [address], [facility] 01/03/2024 14:23:01 Influenza, split virus, quadrivalent, PF 7 completed Carmen Cage APRN [address], [address], [place], [address], [facility] 01/03/2024 14:23:01 Influenza, split virus, quadrivalent, PF 6 completed Carmen Cage APRN [address], [place], [address], [facility] [employer] [facility] 01/03/2024 14:23:01 Influenza, split virus, quadrivalent, PF 8 completed Carmen Cage APRN [address], [place], [address], [facility] 01/03/2024 14:23:01 Influenza, split virus, quadrivalent, PF 9 completed Carmen Cage APRN [address], [address], [place], [address], [employer] [facility] [employer] [facility] 01/03/2024 14:23:01 Influenza, split virus, quadrivalent, PF 2 completed Carmen Cage APRN [address], [place], [place], [address], [facility] [employer] [facility] 01/03/2024 14:23:01 Influenza, split virus, quadrivalent, PF 4 completed Carmen Cage APRN [address], [address], [place], [address], [employer] [facility] [employer] [facility] 01/03/2024 14:23:01 Influenza, split virus, quadrivalent, PF 5 completed Carmen Cage APRN [address], [address], [place], [address], [facility] [employer] [facility] [employer] [facility] 01/03/2024 14:23:01 COVID-19, mRNA, LNP-S, PF, jhonatan-sucrose, 30 mcg/0.3 mL 4 completed Carmen Cage, STONE PROCESSING MACHINE OPERATOR [address], [address], [place], [address], [facility] 01/21/2024 11:15:51 Influenza, MDCK, trivalent, PF 4 completed Carmen Cage, STONE PROCESSING MACHINE OPERATOR [address], [address], [place], [address], [facility] 01/21/2024 11:15:52 Influenza, MDCK, trivalent, PF 5 completed Not Available [facility] 01/05/2025 14:36:23 COVID-19, mRNA, LNP-S, PF, jhonatan-sucrose, 30 mcg/0.3 mL 5 completed Not Available [facility] 01/05/2025 14:36:23 Past Encounters Encounter ID Performer Location Encounter Start Date Encounter Closed Date Diagnosis/Indication Diagnosis SNOMED-CT Code Diagnosis ICD10 Code Diagnosis IMO Codes Diagnosis Note [id number] Vahe martel MD [facility] General Surgery [address] [facility] [address] [address] 10/23/2024 10:22:18 11/03/2024 14:57:24 Epigastric pain 20595902 R10.13 [id number] Vahe martel MD [facility] General Surgery [address] [facility] [address] [address] 11/04/2024 10:53:44 11/04/2024 12:33:51 Epigastric pain 36418826 R10.13 [address]2110 Health Concerns Section Related Observation LastModified by Organization Detai ls LastModified Time None Recorded Concern Status LastModified by Organization Details LastModified Time None Recorded Payers Encounter Date Sequence Insurance Name Policy Number Policy Richardson Covered Member ID Richardson Member ID Guarantor Name 11/04/2024 1 [facility] (MEDICAID HMO) [id number] Max Montoya [id number] Max Montoya Notes Date Note Type Note Provider Name and Address Organization Details Recorded Time 11/04/2024 text/html Patient complains of a several week history of epigastric discomfort and pain associated with belching, diarrhea and bloating. He believes he has his gallbladder because most of his family has had it removed. Denies vomiting. Denies fevers or chills. He states symptoms have been improved since adhering to a low fat diet. Vahe Mandujano MD [address] [place] [address], [place], [address], [place] [facility] 11/05/2024 14:33:27
[2025-01-30 17:36] VITALS: BP 142/89; PULSE 85; RESP 16; TEMP 36.4; O2SAT 97
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
[2025-01-30] MEDS: SODIUM CHLORIDE 0.9% IV 1,000 ML 999 ML IV CONT (19:18)
[2025-01-30 19:27] LABS: Add Urine Microscopic? NO; Appearance Urine Clear (Clear); Glucose Urine UA Negative (Negative); Leukocyte Esterase Ur Negative LEU/UL (Negative); Nitrate Urine Negative (Negative); Specific Grav Ur 1.024 (1.001-1.035)
[2025-01-30 19:27] LABS: Hematocrit 47.1 % (42.0-52.0); Hemoglobin 15.6 g/dL (14.0-18.0); Immature Granulocyte Percent A 0.3 % (0-0.5); Lymphocytes Absolute Auto 3.81 K/mm3 (0.9-3.2); Mean Corpuscular HGB Conc 33.1 g/dl (32-36); Mean Corpuscular Hemoglobin 27.6 pg (26-34); Mean Corpuscular Volume 83.2 fl (80-100); Nucleated Red Blood Cells Absolute Auto 0.000 K/mm3 (0.0-0.012); Nucleated Red Blood Cells Perc 0.0 % (0.0-0.2); Platelet Count Result 324 k/mm3 (150-375); Red Blood Count 5.66 M/mm3 (4.6-6.20); White Blood Count 12.3 K/mm3 (4.5-10.0)
--- NOTE | 2025-01-30 19:48 | PC.NURSE ---
CT called to get ETA for imaging. Per CT they are waiting on labs to come back before they take the pt
[2025-01-30 20:02] LABS: Alanine Aminotransferase 23 U/L (6-50); Albumin Level 4.8 g/dL (3.5-5.1); Alkaline Phosphatase 61 U/L (38-126); Anion Gap 9 mmol/L (4-12); Aspartate Amino Transferase 35 U/L (17-59); Bilirubin,Total 0.7 mg/dL (0.2-1.3); Blood Urea Nitrogen 12 mg/dL (9-20); Calcium 9.3 mg/dL (8.4-10.2); Carbon Dioxide 24 mmol/L (22-30); Chloride 104 mmol/L (98-107); Estimated CRCL calculation 172 ml/min; Estimated Glomerular Filt Rate > 60; Glucose 89 mg/dL (65-110); Lipase 51 U/L (23-300); Potassium 4.1 mmol/L (3.4-5.0); Sodium 137 mmol/L (137-145); Total Protein 8.1 g/dL (6.3-8.2)
== END 2025-01-30 21:12 | disposition left against medical advice (07) ==
PROVIDERS: Emergency Provider Emergency Medicine
DX: R10.9 Unspecified abdominal pain (principal); R07.9 Chest pain, unspecified; V47.0XXA Car driver injured in collision with fixed or stationary object in nontraffic accident, initial encounter
CPT/HCPCS: 36415; 70450; 71250; 72125; 74176; 80053; 81003; 83690; 85025; 96360; 99284; J7030